=== PATIENT | male | born 1990 | race Two or more races ===

== ENCOUNTER 2022-06-06 19:50 | Emergency (ER) | payer MEDICAID, OTHER ==
[~2022-06-06] VITALS: Ht 170.2 cm; Wt 80.0 kg
[2022-06-06 19:50] VITALS: BP 136/75
[2022-06-07] MEDS ORDERED: FLUORESCEIN SOD OPTH TEST STRIP LEFTEYE ONE (00:45)
[2022-06-07] MEDS ORDERED: TETRACAINE HCL 0.5% OPTH(EYE) SOLN 4ML LEFTEYE ONE (00:45)
[2022-06-07] MEDS ORDERED: ERY05OO OP (00:47)
== END 2022-06-07 05:26 | disposition home or self-care (01) ==
LOC: ER 19:50
DX: S05.02XA Injury of conjunctiva and corneal abrasion without foreign body, left eye, initial encounter (principal); X58.XXXA Exposure to other specified factors, initial encounter; Y93.89 Activity, other specified; Y92.89 Other specified places as the place of occurrence of the external cause; Y99.8 Other external cause status

== ENCOUNTER 2022-07-22 11:50 | Emergency (ER) | payer MEDICAID ==
[~2022-07-22] VITALS: Ht 170.2 cm; Wt 80.7 kg
[~2022-07-22 11:50] MED LIST: ERY05OO OP
[2022-07-22 12:30] VITALS: BP 133/83
[2022-07-22 12:59] LABS: Urine Bacteria NONE SEEN /hpf (None Seen); Urine Blood Negative /uL (Negative); Urine Mucus FEW (None Seen); Urine Specific Gravity 1.029 (1.001-1.035); Urine WBC 1 /hpf (0 - 3)
[2022-07-22] MEDS ORDERED: PHEN200T16 PO (13:28)
[2022-07-22] MEDS ORDERED: CIPR-173 PO (13:28)
== END 2022-07-22 13:40 | disposition home or self-care (01) ==
LOC: ER 11:50
DX: N39.0 Urinary tract infection, site not specified (principal); Z88.1 Allergy status to other antibiotic agents; Z88.6 Allergy status to analgesic agent
CPT/HCPCS: 81001